=== PATIENT | male | born 1990 | race Caucasian/White ===

== ENCOUNTER 2017-11-17 19:28 | Emergency (ER) | payer MEDICAID, OTHER ==
[~2017-11-17] VITALS: Ht 172.7 cm; Wt 80.0 kg
[2017-11-17] MEDS ORDERED: CYCL-1 PO (20:49)
[2017-11-17 21:26] VITALS: BP 138/89
== END 2017-11-17 21:35 | disposition home or self-care (01) ==
LOC: ER 19:28
DX: M25.512 Pain in left shoulder (principal); M62.838 Other muscle spasm; M54.2 Cervicalgia; F15.10 Other stimulant abuse, uncomplicated; F11.10 Opioid abuse, uncomplicated; Z79.899 Other long term (current) drug therapy
CPT/HCPCS: 99283

== ENCOUNTER 2024-02-08 19:54 | Emergency (ER) | payer MEDICAID, OTHER ==
[~2024-02-08] VITALS: Ht 180.3 cm; Wt 70.7 kg
[~2024-02-08 19:54] MED LIST: CYCL-1 PO
[2024-02-08 20:13] VITALS: PULSE 88; TEMP 99.1
[2024-02-08 20:58] LABS: BASOPHILS # (AUTO) 0.1 X10'3 (0-0.2); BASOPHILS % (AUTO) 0.6 % (0-1); EOSINOPHILS # (AUTO) 0.3 X10'3 (0-0.9); HEMATOCRIT 37.2 % (42.0-52.0); HEMOGLOBIN 12.5 g/dl (14.0-17.9); LYMPHOCYTES # (AUTO) 2.2 X10'3 (1.1-4.8); LYMPHOCYTES % (AUTO) 24.7 % (21-51); MEAN CORPUSCULAR HGB CONC 33.5 g/dL (33.0-36.5); MEAN CORPUSCULAR VOLUME 86.5 FL (78-98); MEAN PLATELET VOLUME 7.2 FL (7.4-10.4); MONOCYTES # (AUTO) 0.9 X10'3 (0-0.9); MONOCYTES % (AUTO) 9.7 % (2-12); NEUTROPHILS # (AUTO) 5.5 X10'3 (1.8-7.7); PLATELET COUNT 344 X10'3 (140-440); RED CELL DISTRIBUTION WIDTH 13.2 % (11.5-14.5); WHITE BLOOD COUNT 8.8 X10'3 (4.5-11.0)
[2024-02-08 21:16] LABS: ALBUMIN 3.6 G/DL (3.4-5.0); ANION GAP 8 (8-16); BLOOD UREA NITROGEN 10 MG/DL (7-18); BUN/CREATININE RATIO 15.2 (10.0-20.0); CALCIUM 9.2 MG/DL (8.5-10.1); CHLORIDE 102 MMOL/L (99-107); CREATININE 0.66 MG/DL (0.60-1.10); GLUCOSE 94 MG/DL (70-104); POTASSIUM 3.3 MMOL/L (3.5-5.1); SODIUM 138 MMOL/L (135-145); TOTAL CARBON DIOXIDE 28.4 MMOL/L (24-32); eCRCL 162 ML/MIN; eGFR > 90 ML/MIN
[2024-02-08] MEDS ORDERED: SULF1TAB45 PO (21:32)
[2024-02-08] MEDS ORDERED: CEPH-585 PO (21:32)
[2024-02-08] MEDS: LIDOcaine 1% 30ml preserv. free vial SQ STA (21:53)
[2024-02-08 22:19] VITALS: RESP 18
== END 2024-02-08 22:20 | disposition home or self-care (01) ==
LOC: ER 19:55
DX: L02.416 Cutaneous abscess of left lower limb (principal); L03.116 Cellulitis of left lower limb; F15.90 Other stimulant use, unspecified, uncomplicated; F11.90 Opioid use, unspecified, uncomplicated; Z79.2 Long term (current) use of antibiotics; Z79.899 Other long term (current) drug therapy
CPT/HCPCS: 10060; 36415; 71045; 80048; 83605; 84145; 85025; 87040; 99284; A6266; J7030; A6449